=== PATIENT | female | born 1980 | race Caucasian/White ===

== ENCOUNTER 2017-07-02 12:49 | Emergency (ER) | payer OTHER ==
[2017-07-02 15:42] VITALS: BP 117/66
== END 2017-07-02 16:34 | disposition left against medical advice (07) ==
LOC: ED 12:49
DX: R00.2 Palpitations (principal); Z53.21 Procedure and treatment not carried out due to patient leaving prior to being seen by health care provider
CPT/HCPCS: 93005

== ENCOUNTER 2017-12-12 16:39 | Emergency (ER) | payer OTHER ==
[2017-12-12 16:58] VITALS: BP 121/86
--- NOTE | 2017-12-12 17:08 | UC ---
FLU HPI - HPI Summary HPI Summary: Pt presents with sinus pain/pressure/congestion and dry cough for the last 2 weeks. Over the last 3 days she has developed fatigue, headache, and body aches. She has been taking ibuprofen with mild relief of her discomfort. Has felt feverish intermittently, but has not taken her temperature. Denies chills, sore throat, SOB, chest pain, abdominal pain, n/v/d/c. - History of Current Complaint Chief Complaint: UCGeneralIllness Stated Complaint: COUGH,HEADACHE Time Seen by Provider: 12/12/17 17:06 Hx Obtained From: Patient Hx Last Menstrual Period: no period states IUD Onset/Duration: Gradual Onset Severity Currently: Moderate Severity Initially: Moderate Pain Intensity: 4 Pain Scale Used: 0-10 Numeric - Allergy/Home Medications Allergies/Adverse Reactions: Allergies Allergy/AdvReac Type Severity Reaction Status Date / Time No Known Allergies Allergy Verified 12/12/17 16:51 PMH/Surg Hx/FS Hx/Imm Hx Previously Healthy: Yes - Surgical History Surgical History: Yes Surgery Procedure, Year, and Place: biopsies re to lymphoma - Family History Known Family History: Positive: None - Social History Occupation: Employed Full-time Lives: With Family Alcohol Use: None Substance Use Type: None Smoking Status (MU): Never Smoked Tobacco - Immunization History Most Recent Tetanus Shot: unknown Review of Systems Constitutional: Fatigue, Other - Body aches Skin: Negative Eyes: Negative ENT: Nasal Discharge, Sinus Congestion, Sinus Pain/Tenderness Respiratory: Cough Cardiovascular: Negative Gastrointestinal: Negative Musculoskeletal: Negative Neurological: Headache Psychological: Negative All Other Systems Reviewed And Are Negative: Yes Physical Exam Triage Information Reviewed: Yes Appearance: No Pain Distress, Well-Nourished, Ill-Appearing - Mildly Vital Signs: Initial Vital Signs Temp 98.5 F 12/12/17 16:53 Pulse 134 12/12/17 16:53 Resp 20 12/12/17 16:53 BP 121/86 12/12/17 16:53 Pulse Ox 99 12/12/17 16:53 Vital Signs Reviewed: Yes Eyes: Positive: Conjunctiva Clear. Negative: Conjunctiva Inflamed, Discharge ENT: Positive: Hearing grossly normal, Pharynx normal, Nasal congestion, Nasal drainage, TMs normal, Sinus tenderness, Uvula midline. Negative: Pharyngeal erythema, TM bulging, TM dull, TM red, Tonsillar swelling, Tonsillar exudate, Hoarse voice Neck: Positive: Supple, Nontender, Other: - Cervical lymphadenopathy Respiratory: Positive: No respiratory distress, No accessory muscle use, Wheezing - Mild throughout. Negative: Crackles Cardiovascular: Positive: No Murmur, Pulses Normal, Tachycardia Neurological: Positive: Fatigued Psychological: Positive: Age Appropriate Behavior Skin: Negative: rashes, significant lesion(s) Flu Course/Dx - Course Course Of Treatment: POC influenza B positive. Sinusitis. Bronchitis - Differential Dx/Diagnosis Provider Diagnoses: Influenza B. Sinusitis. Bronchitis Discharge - Discharge Plan Condition: Stable Disposition: HOME Prescriptions: Amoxicillin/Clavulanate TAB* [Augmentin TAB 875*] 875 mg PO BID #20 tab Benzonatate CAP* [Tessalon 100 MG CAP*] 100 mg PO TID PRN #21 cap PRN Reason: Cough Fluconazole 150 MG (NF) [Diflucan 150 mg (NF)] 150 mg PO ONCE #1 tab Oseltamivir CAP* [Tamiflu CAP*] 75 mg PO BID #10 cap Patient Education Materials: Sinusitis (ED), Influenza (ED) Referrals: Kevin Martinez MD [Primary Care Provider] - Additional Instructions: If you develop a fever, shortness of breath, chest pain, new or worsening symptoms - please call your PCP or go to the ED.
[2017-12-12] MEDS ORDERED: Albuterol HFA INHALER* 8 gm MDI INH ONE (17:47)
[2017-12-12] MEDS ORDERED: Amoxicillin/Clavulanate TAB* 875 MG PO ONE (17:47)
[2017-12-12] MEDS ORDERED: Oseltamivir CAP* 75 MG CAP PO ONE (17:47)
== END 2017-12-12 18:20 | disposition home or self-care (01) ==
LOC: UCEAST 16:39
DX: J10.1 Influenza due to other identified influenza virus with other respiratory manifestations (principal); J32.9 Chronic sinusitis, unspecified; J40 Bronchitis, not specified as acute or chronic
CPT/HCPCS: 87502; 99213; A9270-GY; G0463